=== PATIENT | female | born 1935 | race Caucasian/White ===

== ENCOUNTER 2018-06-29 11:44 | Outpatient (CLI) | payer OTHER ==
[~2018-06-29 11:44] MED LIST: ATIVAN0.5 M1 PO; ATORVASTATIN CA40 MG PO; COUMADIN3 MG PO; COZAAR100 MG PO; ENALAPRIL MALEAT5 MG PO; NEURONTIN300 MG PO; SINGULAIR10 MG PO; SYNTHROID50 MCG PO; THEOPHYLLINE400 MG PO; TRAM1TAB98 PO; ULTRAM50 MG PO; XARELTO 10MG PO; ZANTAC150 M3 PO; ZYRTEC10 M3 PO; [UNRECOGNIZED DRUG - OTHER] PO
[2018-06-30] MEDS ORDERED: PERCOCET 5-3251 EACH PO (14:17)
[2018-06-30] MEDS ORDERED: AMOX-CLAV 875-1 EACH PO (14:17)
[2018-06-30] MEDS ORDERED: ATIVAN0.5 MG PO (14:17)
[2018-06-30] MEDS ORDERED: DOCUSATE SODIU100 MG PO (14:17)
[2018-06-30] MEDS ORDERED: GABAPENTIN800 MG PO (14:17)
== END 2018-06-29 12:26 | disposition home or self-care (01) ==
LOC: LAB 11:44
DX: D68.8 Other specified coagulation defects (principal)

== ENCOUNTER 2018-06-30 06:36 | Inpatient (IN) | payer OTHER ==
[~2018-06-30] VITALS: Ht 142.2 cm; Wt 57.6 kg
[2018-06-30] MEDS ORDERED: AMOX-CLAV 875-1 EACH PO (14:17)
[2018-06-30] MEDS ORDERED: PERCOCET 5-3251 EACH PO (14:17)
[2018-06-30] MEDS ORDERED: ATIVAN0.5 MG PO (14:17)
[2018-06-30] MEDS ORDERED: DOCUSATE SODIU100 MG PO (14:17)
[2018-06-30] MEDS ORDERED: GABAPENTIN800 MG PO (14:17)
== END 2018-07-01 16:44 | DRG 460 ==
LOC: SURH 06:36 → O/R 06:36 → SURH 12:45
PROVIDERS: ADMIT Orthopaedic Surgery Orthopaedic Surgery of the Spine
PROC: 0SG00AJ Fusion of Lumbar Vertebral Joint with Interbody Fusion Device, Posterior Approach, Anterior Column, Open Approach (ICD-10-PCS; 2018-06-30)
PROC: 0ST20ZZ Resection of Lumbar Vertebral Disc, Open Approach (ICD-10-PCS; 2018-06-30)
PROC: 07DS3ZZ Extraction of Vertebral Bone Marrow, Percutaneous Approach (ICD-10-PCS; 2018-06-30)
PROC: B31 Imaging, Upper Arteries, Fluoroscopy (ICD-10-PCS; 2018-06-30)
PROC: 4A12X4Z Monitoring of Cardiac Electrical Activity, External Approach (ICD-10-PCS; 2018-06-30)
PROC: 0T9B70Z Drainage of Bladder with Drainage Device, Via Natural or Artificial Opening (ICD-10-PCS; 2018-06-30)
PROC: 4A12X4Z Monitoring of Cardiac Electrical Activity, External Approach (ICD-10-PCS; 2018-06-30)
PROC: 0SG00A0 Fusion of Lumbar Vertebral Joint with Interbody Fusion Device, Anterior Approach, Anterior Column, Open Approach (ICD-10-PCS; principal; 2018-06-30 12:45)
DX: M48.061 Spinal stenosis, lumbar region without neurogenic claudication (principal); M51.36 Other intervertebral disc degeneration, lumbar region; M96.1 Postlaminectomy syndrome, not elsewhere classified; I10 Essential (primary) hypertension; E03.8 Other specified hypothyroidism; Z98.1 Arthrodesis status

== ENCOUNTER 2019-09-24 11:03 | Outpatient (CLI) | payer OTHER ==
[~2019-09-24 11:03] MED LIST changes: +AMOX-CLAV 875-1 EACH PO; +ATIVAN0.5 MG PO; +DOCUSATE SODIU100 MG PO; +GABAPENTIN800 MG PO; +PERCOCET 5-3251 EACH PO
== END 2019-09-24 11:24 | disposition home or self-care (01) ==
LOC: RAD 11:03 → MRI 11:03 → RAD 11:24
PROVIDERS: ATTEND Anesthesiology
DX: M51.86 Other intervertebral disc disorders, lumbar region (principal); M25.512 Pain in left shoulder
CPT/HCPCS: 73221

== ENCOUNTER 2022-05-08 09:47 | Outpatient (CLI) | payer OTHER ==
[2022-06-14] MEDS ORDERED: LYRICA50 MG PO (12:07)
== END 2022-05-08 09:59 | disposition home or self-care (01) ==
LOC: RAD 09:47
PROVIDERS: ATTEND Orthopaedic Surgery
DX: M25.512 Pain in left shoulder (principal); M54.59 Other low back pain; M79.605 Pain in left leg; Z96.652 Presence of left artificial knee joint; S72.141D Displaced intertrochanteric fracture of right femur, subsequent encounter for closed fracture with routine healing; M25.561 Pain in right knee

== ENCOUNTER 2022-06-12 10:39 | Outpatient (CLI) | payer OTHER | END 2022-06-12 10:54 | disposition home or self-care (01) | LOC: LAB 10:39 | PROVIDERS: ATTEND Orthopaedic Surgery | DX: N19 Unspecified kidney failure (principal); D64.89 Other specified anemias; M06.4 Inflammatory polyarthropathy; E55.9 Vitamin D deficiency, unspecified; M85.9 Disorder of bone density and structure, unspecified; E56.1 Deficiency of vitamin K; E21.3 Hyperparathyroidism, unspecified; E88.89 Other specified metabolic disorders; M81.8 Other osteoporosis without current pathological fracture ==

== ENCOUNTER 2022-06-26 10:29 | Outpatient (CLI) | payer OTHER ==
[~2022-06-26 10:29] MED LIST changes: +LYRICA50 MG PO
== END 2022-06-26 11:06 | disposition home or self-care (01) ==
LOC: TOM 10:29
PROVIDERS: ATTEND Orthopaedic Surgery
DX: M75.122 Complete rotator cuff tear or rupture of left shoulder, not specified as traumatic (principal); M19.012 Primary osteoarthritis, left shoulder

== ENCOUNTER 2022-09-25 14:31 | Emergency (ER) | payer OTHER ==
[~2022-09-25] VITALS: Ht 157.5 cm; Wt 72.6 kg
[~2022-09-25 14:31] MED LIST changes: +PREGABALIN25 MG PO; +TRAMADOL HCL50 MG PO
== END 2022-09-25 21:30 | disposition home or self-care (01) ==
LOC: ER 14:31
DX: R42 Dizziness and giddiness (principal); I10 Essential (primary) hypertension; I25.10 Atherosclerotic heart disease of native coronary artery without angina pectoris

== ENCOUNTER 2023-09-17 13:42 | Emergency (ER) | payer OTHER ==
[~2023-09-17] VITALS: Ht 144.8 cm; Wt 57.2 kg
[~2023-09-17 13:42] MED LIST changes: +COUMADIN; +COZAAR100 MG; +FLONASE SENSIM5.9 ML; +JANTOVEN3 MG PO; +KETOTIFEN FUMARA5 ML; +LYRICA100 MG PO; +NEURONTIN800 MG; +OLOPATADINE HCL5 ML; +OPTIVE EYE DROP15 ML; +PEPCID AC10 MG; +PREGABALIN75 MG PO; +TIROSINT50 MCG PO; +TRAZODONE HCL50 MG PO; +ULTRAM50 MG; +VASOFLEX HD CA1 EACH; +VASOTEC20 M1; +VASOTEC20 M1 PO
[2023-09-17] MEDS ORDERED: MEPERIDINE HCL 25 MG/ML AMPUL IM STA (15:37)
[2023-09-17] MEDS ORDERED: KETOROLAC TROMETHAMINE 60 MG VIAL IM STA (15:41)
[2023-09-17] MEDS ORDERED: KETOROLAC TROMETHAMINE 60 MG VIAL IM ONE (15:46)
== END 2023-09-17 18:17 | disposition home or self-care (01) ==
LOC: ER 13:43
DX: S20.211A Contusion of right front wall of thorax, initial encounter (principal); W18.39XA Other fall on same level, initial encounter; Y93.89 Activity, other specified; Y92.018 Other place in single-family (private) house as the place of occurrence of the external cause
CPT/HCPCS: 71110; 96372; 99283; J1885